=== PATIENT | male | born 1965 ===

== ENCOUNTER 2018-07-20 16:18 | Emergency (ER) | payer OTHER ==
[~2018-07-20] VITALS: Ht 180.3 cm; Wt 93.4 kg
[~2018-07-20 16:18] MED LIST: ASPIR-LOW81 MG PO; CO Q-1030 MG PO; OMEPRAZOLE20 MG PO; PIROXICAM20 MG PO; RAMIPRIL10 MG PO; VITAMIN D250000 UNIT PO
[2018-07-20] MEDS ORDERED: AMLODIPINE BESYL5 MG PO (16:52)
[2018-07-20] MEDS ORDERED: AUGMENTIN 875-1 EACH PO (18:40)
== END 2018-07-20 19:01 | disposition home or self-care (01) ==
LOC: ED 16:18
DX: K57.32 Diverticulitis of large intestine without perforation or abscess without bleeding (principal); R91.1 Solitary pulmonary nodule; I10 Essential (primary) hypertension; Z79.82 Long term (current) use of aspirin; Z79.899 Other long term (current) drug therapy
CPT/HCPCS: 74177; 80053; 81001; 83690; 85025; 96360; 99284-25; J7030; Q9967